=== PATIENT | female | born 1985 | race Caucasian/White ===

== ENCOUNTER 2025-03-15 16:57 | Emergency (ER) | payer OTHER ==
[~2025-03-15] VITALS: Ht 160 cm; Wt 90.7 kg
[2025-03-15 17:57] LABS: APPEARANCE,URINE CLOUDY (CLEAR); BLOOD, URINE NEGATIVE Ery/uL (NEGATIVE); LEUKOCYTE ESTERASE ,URINE NEGATIVE (NEGATIVE); NITRITE, URINE POSITIVE (NEGATIVE); UGLUCOSE 1+ mg/dL (NEGATIVE)
[2025-03-15 18:00] LABS: ADD URINE CULTURE YES; HYALINE CASTS, URINE Few /LPF (None Seen); SQUAMOUS EPITHELIAL CELL,UR Moderate /HPF (None Seen); URINE AMORPHOUS URATE Many /HPF (None Seen)
[2025-03-15 18:01] LABS: PREGNANCY TEST URINE QUAL NEGATIVE (NEGATIVE)
[2025-03-15] MEDS: IV NS 0.9% 1,000 ML BAG IV ONE (18:10)
[2025-03-15 18:52] LABS: BARBITURATE, URINE NEGATIVE (NEGATIVE); BENZODIAZEPINE, URINE NEGATIVE (NEGATIVE); CANNABINOID, URINE NEGATIVE (NEGATIVE); COCCAINE, URINE NEGATIVE (NEGATIVE); OPIATE, URINE NEGATIVE (NEGATIVE)
[2025-03-15 18:53] LABS: AMPHETAMINE, URINE POSITIVE (NEGATIVE)
[2025-03-15] MEDS: MAG HYDROX/AL HYDROX/SIMETH 30 ML UDC PO ONE (19:00)
[2025-03-15] MEDS ORDERED: CEFTRIAXONE 1GM BAG (ER ONLY) 50 ML IV ONE (19:03)
[2025-03-15] MEDS ORDERED: MAG HYDROX/AL HYDROX/SIMETH 30 ML UDC ONE (19:04)
[2025-03-15] MEDS: CEFTRIAXONE 1GM BAG (ER ONLY) 50 ML IV ONE (19:05)
[2025-03-15 19:12] LABS: PLATELET COUNT (AUTO) 258 K/uL (150-450); RED BLOOD CELL COUNT(AUTO) 5.10 MIL/uL (4.0-5.2); RED CELL DISTRIBUTION WIDTH 16.5 % (11.5-15.0); WHITE BLOOD COUNT (AUTO) 9.6 K/uL (4.3-11.0)
[2025-03-15 19:32] LABS: CALCIUM, SERUM 8.4 mg/dL (8.5-10.1); CREATININE 0.6 mg/dL (0.6-1.3); SODIUM SERUM 144.0 mmol/L (136-145); UREA NITROGEN, BLOOD 11.0 mg/dL (7-18)
[2025-03-15 19:37] LABS: ASPARTATE AMINOTRANSFERASE 18.0 U/L (15-37); TOTAL PROTEIN, SERUM 6.9 g/dL (6.4-8.2)
[2025-03-15 19:55] LABS: ALCOHOL, BLOOD < 3 mg/dL (0-10)
[2025-03-15] MEDS ORDERED: CEPH-570 PO (19:57)
[2025-03-15] MEDS ORDERED: DOXY100T2 PO (19:57)
[2025-03-15] MEDS ORDERED: METR500T PO (19:57)
[2025-03-15] MEDS ORDERED: OLANZAPINE 5 MG TABLET ONE (21:27)
[2025-03-15] MEDS: OLANZAPINE 5 MG TABLET PO ONE (21:30)
[2025-03-15] MEDS ORDERED: LORAZEPAM INJ 2 MG/ML VIAL ONE (21:47)
[2025-03-15] MEDS: LORAZEPAM INJ 2 MG/ML VIAL IM ONE (21:53)
[2025-03-15] MEDS ORDERED: OLANZAPINE 10 MG VIAL IM ONE (23:15)
[2025-03-15] MEDS: OLANZAPINE 10 MG VIAL IM ONE (23:18)
[2025-03-16 11:00] VITALS: BP 130/89; TEMP 98.7; O2SAT 99
== END 2025-03-16 13:15 ==
LOC: ER 17:00
DX: F25.9 Schizoaffective disorder, unspecified (principal); F31.9 Bipolar disorder, unspecified; R10.9 Unspecified abdominal pain; E11.9 Type 2 diabetes mellitus without complications; E78.00 Pure hypercholesterolemia, unspecified; F15.10 Other stimulant abuse, uncomplicated; Z59.02 Unsheltered homelessness; Z78.1 Physical restraint status; Z79.899 Other long term (current) drug therapy
CPT/HCPCS: 99285; 96372; 96365; 96361; 85025; 80048; 87086; 83690; 80076; 84703; 81001; 36415; 80143; 80320; 80307; J2060; J1200; J7030; J3490; J0696; G0480